=== PATIENT | male | born 1990 | race African-American/Black ===

== ENCOUNTER 2020-03-18 17:22 | Outpatient (REF) | payer OTHER, SELFPAY | END 2020-03-18 17:23 | disposition home or self-care (01) | LOC: HO.LAB 17:22 | PROVIDERS: Visit Provider Internal Medicine | DX: Z20.822 Contact with and (suspected) exposure to COVID-19 (principal) | CPT/HCPCS: 36415; C9803; U0003; U0005 ==

== ENCOUNTER 2021-02-07 10:18 | Outpatient (REF) | payer OTHER, SELFPAY ==
[2021-02-07 11:18] LABS: Binax Internal Control QC Valid; Binax Lot number: 9864; Binax Now Covid-19 Ag Negative (Negative)
== END 2021-02-07 10:19 | disposition home or self-care (01) ==
LOC: HO.LAB 10:18
PROVIDERS: Visit Provider Internal Medicine
DX: Z20.822 Contact with and (suspected) exposure to COVID-19 (principal)
CPT/HCPCS: 36415; C9803